=== PATIENT | male | born 1980 | race Caucasian/White ===

== ENCOUNTER 2021-09-05 09:04 | Emergency (ER) | payer OTHER ==
[~2021-09-05 09:04] MED LIST: OMEPRAZOLE40 MG PO; SKELAXIN800 MG PO; VOLTAREN **OUT75 MG PO
[2021-09-05 11:27] LABS: BILIRUBIN NEGATIVE (NEGATIVE); BLOOD NEGATIVE Ery/uL (NEGATIVE); CLARITY CLEAR (CLEAR); COLOR YELLOW (YELLOW); GLUCOSE (U) NORMAL (NORMAL); LEUKOCYTES NEGATIVE Leu/uL (NEGATIVE); NITRITE NEGATIVE (NEGATIVE); PROTEIN NEGATIVE (NEGATIVE); UROBILINOGEN 0.2 mg/dL (0.2-1.0)
[2021-09-05 11:51] LABS: BASOPHIL 0.8 % (0-2); EOSINOPHIL 1.6 % (0-5); HCT 44.5 % (42.0-52.0); HGB 14.7 g/dl (13.2-18.0); LYMPHOCYTE 28.1 % (15-48); MCH 32.2 pg (25.0-31.0); MCV 97.4 fL (78.0-100.0); MONOCYTE 7.1 % (0-12); MPV 10.1 fL (6.0-9.5); NRBC 0; PLT 359 K/uL (150-400); RBC 4.57 M/uL (4.70-6.00); RDW 12.3 % (11.5-14.0); WBC 7.5 K/uL (4.0-10.5)
[2021-09-05 12:06] LABS: BUN/CREAT RATIO (CALC) 18.6 RATIO; CREATININE 0.97 mg/dL (0.67-1.17); POTASSIUM 5.3 mmol/L (3.5-5.1)
== END 2021-09-05 12:40 | disposition home or self-care (01) ==
LOC: FER 09:04
PROVIDERS: Emergency Medicine
DX: K40.90 Unilateral inguinal hernia, without obstruction or gangrene, not specified as recurrent (principal); F17.200 Nicotine dependence, unspecified, uncomplicated
CPT/HCPCS: 36415; 80048; 81003; 85025

== ENCOUNTER 2021-09-20 09:23 | Emergency (ER) | payer OTHER ==
[2021-09-20] MEDS ORDERED: PERCOCET 5-3251 EACH PO (10:41)
[2021-09-20] MEDS ORDERED: NAPROXEN500 MG PO (10:44)
== END 2021-09-20 11:02 | disposition home or self-care (01) ==
LOC: FER 09:23
DX: K40.90 Unilateral inguinal hernia, without obstruction or gangrene, not specified as recurrent (principal); F17.210 Nicotine dependence, cigarettes, uncomplicated
CPT/HCPCS: 99283

== ENCOUNTER → 2021-10-25 | Day surgery (SDC) | payer OTHER ==
[~2021-10-25] VITALS: Ht 180.3 cm; Wt 68.2 kg
[~2021-10-25] MED LIST changes: +NAPROXEN500 MG PO; +PERCOCET 10-321 EACH PO; +PERCOCET 5-3251 EACH PO
== END | disposition home or self-care (01) ==
LOC: FAS 10-12 08:00
DX: K40.90 Unilateral inguinal hernia, without obstruction or gangrene, not specified as recurrent (principal); F17.210 Nicotine dependence, cigarettes, uncomplicated
CPT/HCPCS: C1781; J0690; J1885; J2250; J2405; J2704; J3010; J7120

== ENCOUNTER 2021-11-01 13:31 | Emergency (ER) | payer OTHER ==
[2021-11-01] MEDS ORDERED: PERCOCET 10-321 EACH PO (13:34)
== END 2021-11-01 15:23 | disposition home or self-care (01) ==
LOC: FER 13:31
DX: G89.18 Other acute postprocedural pain (principal); R10.31 Right lower quadrant pain; F17.210 Nicotine dependence, cigarettes, uncomplicated; R58 Hemorrhage, not elsewhere classified; Z28.310 Unvaccinated for COVID-19
CPT/HCPCS: 99282